=== PATIENT | female | born 1930 | race Caucasian/White ===

== ENCOUNTER 2019-07-01 08:07 | Inpatient (IN) ==
[2019-07-01] MEDS ORDERED: ASPIRIN PO ONE (08:31)
--- NOTE | 2019-07-01 09:02 | Diag Imaging Result Doc PS360 ---
EXAM: CHEST-1 VIEW 07/01/2019 HISTORY: sob TECHNIQUE: AP portable upright at 2051 COMMENT: There is cardiomegaly. The lungs are not as well-expanded as on 07/07/2018. There is some fluid in the minor fissure on the right. There is some questionable interstitial pulmonary edema. IMPRESSION: Right pleural effusion. Questionable pulmonary edema. Cardiomegaly. Electronically signed by Noe Pedroza 07/01/2019 8:59 AM
--- NOTE | 2019-07-01 09:07 | PROVIDER DOCUMENTATION ---
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 She states that it made her feel bad so she stopped taking it 3 days ago. She has had a cough with pink sputum Quality of Pain: reports: none Severity in ED: reports: moderate Onset/Duration: reports: 24 hours ago Timing: reports: still present Context: denies: recent foreign travel, insect bite (possible tick), recent chemotherapy, multiple patients with similar complaints, recent URI, out of meds, sports/exercise, aspiration/choking, other Exposure: reports: unknown cause Cough Quality/Degree: reports: moderate, sputum Episode Frequency: chronic episodes Current Respiratory Medication Therapy: Initiated none Modifying Factors: improves with: nothing Associated Symptoms: reports: short of breath Similar Symptoms Previously?: Yes Recently seen or treated by another doctor?: Yes Review of Systems - Adult - REVIEW OF SYSTEMS - ADULT Constitutional: reports: no symptoms reported Eyes: reports: no symptoms reported Ears, Nose, Mouth & Throat: reports: no symptoms reported Cardiovascular: reports: heart murmur, palpitations Respiratory: reports: see HPI, chronic cough Gastrointestinal: reports: no symptoms reported Genitourinary: reports: no symptoms reported Musculoskeletal: reports: no symptoms reported Integumentary: reports: no symptoms reported Neurological: reports: no symptoms reported Psychiatric: reports: no symptoms reported Endocrine: reports: no symptoms reported Hematologic/Lymphatic: reports: no symptoms reported Allergic/Immunologic: reports: no symptoms reported Past History - Adult - PAST MEDICAL HISTORY-ADULT Review of Records: reports: Old Records Reviewed, Nursing Assessment Review Major Childhood Illnesses: reports: denies history Cardiovascular: reports: CHF, murmur Respiratory: reports: denies history Gastrointestinal: reports: denies history Obstetrical/Gynecological: reports: denies history Genitourinary: reports: denies history Musculoskeletal: reports: denies history Neurological: reports: denies history Endocrine/Immune: reports: denies history Other Conditions: reports: denies history - PRIOR SURGERIES/PROCEDURES Surgical/Procedure History: reports: hysterectomy - IMMUNIZATION STATUS Childhood Immunizations: See Nurse Assessment Flu Vaccine: See Nurse Assessment - FAMILY HISTORY Family History: reviewed, not pertinent Physical Exam-General - PHYSICAL EXAM-ADULT Initial Vital Signs Reviewed: Yes - CONSTITUTIONAL General Appearance: alert, mild distress, thin - EYES Eyes: PERRL/EOMI, pink conjunctivae - HEAD, EARS, NOSE, MOUTH & THROAT HENMT: normocephalic/atraumatic, moist mucous membranes, normal ENT inspection, TMs normal, pharynx normal - NECK Neck: non-tender, full range of motion, supple - RESPIRATORY Respiratory: rales (at base) - CARDIOVASCULAR Cardiovascular: regular rate, rhythm, tachycardia, systolic murmur (08/16) - GASTROINTESTINAL (ABDOMEN) Abdominal Exam: normal bowel sounds, non tender, soft, no organomegaly, no pulsatile mass - LYMPHATIC Lymphatic: no adenopathy, axilla node tender - MUSCULOSKELETAL Back Exam: normal inspection, no CVA tenderness, no vertebral tenderness Extremity: normal range of motion, non-tender, normal gait, pedal edema (trace) - SKIN Integumentary: normal color, normal turgor - NEUROLOGIC 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 as tested - PSYCHIATRIC Psych/Mental Status: normal mood/affect Progress - PLAN OF CARE/RESULTS Progress/Plan/Lab Results: Vital Signs - 8 hr 07/01/19 08:15 Temperature 98.9 F Pulse Rate 116 H Respiratory Rate 28 H Blood Pressure 93/60 O2 Sat by Pulse Oximetry 91 L Laboratory Results - last 24 hr 07/01/19 07/01/19 07/01/19 08:53 08:56 08:56 WBC 10.07 RBC 4.09 L Hgb 13.3 Hct 40.6 MCV 99.3 H MCH 32.5 H MCHC 32.8 L RDW Std Deviation 12.5 Plt Count 93 L MPV 12.7 H Immature Gran % (Auto) 0.3 Neut % (Auto) 75.7 H Lymph % (Auto) 10.4 L [place] % (Auto) 13.0 H Eos % (Auto) 0.2 Baso % (Auto) 0.4 Immature Gran # (Auto) 0.03 Neut # (Auto) 7.62 H Lymph # (Auto) 1.05 L [place] # (Auto) 1.31 H Eos # (Auto) 0.02 Baso # (Auto) 0.04 PT INR PTT (Actin FS) Sodium 139 Potassium 3.8 Chloride 99 Carbon Dioxide 31 Anion Gap 9 BUN 17 Creatinine 0.7 Estimated GFR/1.73 m2 > 60 BUN/Creatinine Ratio 24 Glucose 148 H Calculated Osmolality 282 Calcium 10.0 Total Bilirubin 0.96 AST 71 H ALT 63 H Alkaline Phosphatase 92 Creatine Kinase 164 Troponin T High Sens Wqy-E-Sgqfjubfiew Pept Total Protein 6.2 L Albumin 3.5 Globulin 2.7 Albumin/Globulin Ratio 1.3 Plasma Lactate Urine Source CLEAN CATCH Urine Color YELLOW Urine Turbidity CLEAR Urine pH 6.0 Ur Specific [place] 1.021 Urine Protein 30 A Ur Glucose (Stick) 150 A Ur Ketones (Stick) NEGATIVE Urine Blood LARGE A Urine Nitrite NEGATIVE Urine Bilirubin NEGATIVE Urobilinogen Dipstick NORMAL Urine Leukocytes NEGATIVE Urine WBC (Auto) <10 Urine RBC (Auto) 20-40 A U Epithel Cells (Auto) <10 Urine Bacteria (Auto) NEGATIVE 07/01/19 07/01/19 07/01/19 08:56 08:56 08:56 WBC RBC Hgb Hct MCV MCH MCHC RDW Std Deviation Plt Count MPV Immature Gran % (Auto) Neut % (Auto) Lymph % (Auto) [place] % (Auto) Eos % (Auto) Baso % (Auto) Immature Gran # (Auto) Neut # (Auto) Lymph # (Auto) [place] # (Auto) Eos # (Auto) Baso # (Auto) PT 14.4 INR 1.10 PTT (Actin FS) 39.0 Sodium Potassium Chloride Carbon Dioxide Anion Gap BUN Creatinine Estimated GFR/1.73 m2 BUN/Creatinine Ratio Glucose Calculated Osmolality Calcium Total Bilirubin AST ALT Alkaline Phosphatase Creatine Kinase Troponin T High Sens 63 H Tic-Z-Eslmpjlujmm Pept Total Protein Albumin Globulin Albumin/Globulin Ratio Plasma Lactate 2.7 H Urine Source Urine Color Urine Turbidity Urine pH Ur Specific [place] Urine Protein Ur Glucose (Stick) Ur Ketones (Stick) Urine Blood Urine Nitrite Urine Bilirubin Urobilinogen Dipstick Urine Leukocytes Urine WBC (Auto) Urine RBC (Auto) U Epithel Cells (Auto) Urine Bacteria (Auto) 07/01/19 08:56 WBC RBC Hgb Hct MCV MCH MCHC RDW Std Deviation Plt Count MPV Immature Gran % (Auto) Neut % (Auto) Lymph % (Auto) [place] % (Auto) Eos % (Auto) Baso % (Auto) Immature Gran # (Auto) Neut # (Auto) Lymph # (Auto) [place] # (Auto) Eos # (Auto) Baso # (Auto) PT INR PTT (Actin FS) Sodium Potassium Chloride Carbon Dioxide Anion Gap BUN Creatinine Estimated GFR/1.73 m2 BUN/Creatinine Ratio Glucose Calculated Osmolality Calcium Total Bilirubin AST ALT Alkaline Phosphatase Creatine Kinase Troponin T High Sens Jya-H-Mblsuxvbvwg Pept 02529 H Total Protein Albumin Globulin Albumin/Globulin Ratio Plasma Lactate Urine Source Urine Color Urine Turbidity Urine pH Ur Specific [place] Urine Protein Ur Glucose (Stick) Ur Ketones (Stick) Urine Blood Urine Nitrite Urine Bilirubin Urobilinogen Dipstick Urine Leukocytes Urine WBC (Auto) Urine RBC (Auto) U Epithel Cells (Auto) Urine Bacteria (Auto) Orders Category Date Time Status Cardiac Monitoring DIRECTED Care 07/01/19 08:30 Active IV Insertion ORDERED Care 07/01/19 08:30 Completed Notify MD of + Sepsis Screen NOW Care 07/01/19 08:30 Active Notify Physician As Ordered Care 07/01/19 08:30 Active CHEST-1 VIEW [RAD] Stat Exams 07/01/19 08:30 Completed BLOOD CULTURE [BLDCUL] Stat Lab 07/01/19 08:56 Results CBC WITH DIFF [HEME] Stat Lab 07/01/19 08:56 Completed CK PROFILE [SP CHEM] Stat Lab 07/01/19 08:56 Completed COMPREHENSIVE METABOLIC PANEL [CHEM] Stat Lab 07/01/19 08:56 Completed LACTATE, PLASMA [CHEM] Lab 07/01/19 08:56 Completed LACTATE, PLASMA [CHEM] Lab 07/01/19 11:30 Uncollected LACTATE, PLASMA [CHEM] Lab 07/01/19 14:30 Uncollected PRO B-NATRIURETIC PEPTIDE Stat Lab 07/01/19 08:56 Completed PROTIME WITH INR [COAG] Stat Lab 07/01/19 08:56 Completed PTT [COAG] Stat Lab 07/01/19 08:56 Completed TROPONIN T HIGH SENSITIVITY Stat Lab 07/01/19 08:56 Completed URINALYSIS W/POSS RFLX CULT [URINALYSIS] Stat Lab 07/01/19 08:53 Completed 0.9% Sodium Chloride Inj [Ns] 1,000 ml Med 07/01/19 09:26 Discontinued IV 999 mls/hr Aspirin Med 07/01/19 08:31 Discontinued 325 mg PO NOW ONE Oxygen Device Stat Oth 07/01/19 08:30 Active EKG [EKG] Stat Ther 07/01/19 08:32 Ordered Result Diagrams: 07/01/19 08:56 07/01/19 08:56 - REASSESSMENT Reassessment #1 Time Reassessed: 10:42 Status: unchanged - CONSULTS/PCP/HOSPITALIST Notification #1 *Consult/PCP/Hospitalist*: Maribel Time Discussed: 10:42 (Admit to Dr Wallace) Consult Disposition: Will see in ED Departure - Departure Date of Disposition Decision: 07/01/19 Time of Disposition Decision: 10:43 DIAGNOSIS: CHF (congestive heart failure) Disposition: ADMITTED INPATIENT 09 Certified Medical Emergency: Emergent Condition: Fair Referrals and Follow-Ups: Ladonna Woodson MD [Primary Care Provider] - - Critical Care Note This patient required my direct & personal management of CC.: No Attestation - Physician/ GABRIELLE Attestation Patient care was provided by Advanced Practice Provider:: No The physician spent face to face time with patient:: Yes Advanced Practice Provider documentation review:: Supervising physician onsite and consulted in the evaluation and care of this patient. The physician did have a face to face encounter with the patient.
[2019-07-01 09:17] LABS: URINE SOURCE CLEAN CATCH
[2019-07-01] MEDS ORDERED: NS 1,000 ML IV ONE (09:26)
[2019-07-01 09:32] LABS: BILIRUBIN URINE NEGATIVE (NEGATIVE); BLOOD URINE LARGE (NEGATIVE); COLOR YELLOW; GLUCOSE URINE 150 mg/dL (NEGATIVE); KETONE URINE NEGATIVE (NEGATIVE); LEUKOCYTES URINE NEGATIVE (NEGATIVE); NITRITE URINE NEGATIVE (NEGATIVE); PROTEIN URINE 30 mg/dL (NEGATIVE); SP GRAVITY URINE 1.021; TURBIDITY URINE CLEAR (CLEAR); UROBILINOGEN URINE NORMAL (NORMAL)
[2019-07-01 09:34] LABS: UR EPITHELIAL CELLS <10 /HPF (<10); URINE BACTERIA NEGATIVE /HPF; URINE RBC 20-40 /HPF (<10); URINE WBC <10 /HPF (<10)
[2019-07-01 09:39] LABS: INR 1.1; PROTIME 14.4 Seconds (11.0-16.0)
[2019-07-01 09:48] LABS: BASO# 0.04 X1000 (0.0-0.2); BASO% 0.4 % (0.0-0.8); EOS# 0.02 X1000 (0.0-0.7); EOS% 0.2 % (0.0-10.0); HEMATOCRIT 40.6 % (37.0-47.0); HEMOGLOBIN 13.3 g/dL (12.0-16.0); IMM GRAN# 0.03 X1000 (0.0-0.04); IMM GRAN% 0.3 % (0.0-0.5); LYMPH# 1.05 X1000 (1.2-3.4); LYMPH% 10.4 % (20.5-51.1); MCH 32.5 PG (27-31); MCHC 32.8 g/dL (33-37); MCV 99.3 FL (81-99); MONO# 1.31 X1000 (0.11-0.59); MPV 12.7 FL (7.4-10.4); NEUT# 7.62 X1000 (1.4-6.5); NEUT% 75.7 % (42.2-75.2); PLT 93 X1000 (130-400); RBC 4.09 XMIL (4.2-5.4); RDW 12.5 % (11.5-14.5); WBC 10.07 X1000 (4.8-10.8)
[2019-07-01 09:49] LABS: AGAP 9; ALB/GLOB RATIO 1.3; ALBUMIN 3.5 g/dL (3.5-5.0); ALKALINE PHOSPHATASE 92 U/L (32-104); BUN 17 mg/dL (8-22); CHLORIDE 99 mmol/L (98-107); CK PROFILE 164 U/L (24-173); COSMO 282; CREATININE 0.7 mg/dL (0.5-0.9); ESTIMATED GFR > 60; GLUCOSE 148 mg/dL (70-104); GOT 71 U/L (10-30); GPT 63 U/L (10-36); POTASSIUM 3.8 mmol/L (3.5-5.1); SODIUM 139 mmol/L (136-145); TCO2 31 mmol/L (25-35); TOTAL BILIRUBIN 0.96 mg/dL (0.20-1.00); TOTAL PROTEIN 6.2 g/dL (6.3-8.3)
--- NOTE | 2019-07-01 11:36 | HISTORY AND PHYSICAL ---
HISTORY OF PRESENT ILLNESS: She says that for a couple weeks now, she has had more shortness of breath, and it has just progressed. She feels like she has had a little more swelling in her feet, increased orthopnea, and she has been told that she has had congestive heart failure. PAST MEDICAL HISTORY: Fairly unremarkable. She had a light stroke back in June of this last year, and then the following July, she got pneumonia, she was pretty weak. I think it took her until August to really recover and get her strength back. She has been told that she had congestive heart failure about 3 years ago. PAST SURGICAL HISTORY: Only surgical history is status post hysterectomy. ALLERGIES: No known drug allergies. FAMILY HISTORY: Mother and father both of a heart attack. SOCIAL HISTORY: Negative for alcohol, tobacco, or illicit drugs. She lives by herself, but her son lives across the street and checks on her often. She lives up in [place]. REVIEW OF SYSTEMS: General: She does not report any weight gain or loss. No fever or chills. HEENT: No change in visual or hearing acuity. Respiratory: She has increased dyspnea with exertion and with rest, increased orthopnea. Cardiovascular: No chest pain or tachy palpitations reported. Musculoskeletal/Neurologic: No focal complaints. Endocrinologic/Hematologic: No significant history. PHYSICAL EXAMINATION: VITAL SIGNS: She is afebrile. Temperature is 98.9 degrees, pulse 116, respirations 20, blood pressure 93/60. GENERAL: She is awake, alert, oriented x3. HEENT: Pupils are equal and round. NECK: Supple. No thyromegaly. She has distended neck veins appreciated. No cervical adenopathy. LUNGS: She has rales in both bases. CARDIOVASCULAR: Regular rhythm and rate without murmur or S3. ABDOMEN: Soft. SKIN: Warm and dry. BACK: She does have some kyphosis. EXTREMITIES: Her carotid, radial, and femoral pulse is 2+ and symmetrical. She has trace edema at the ankles to the mid navas. SKIN: Warm and dry. No sign of rashes. IMAGING AND LABORATORY DATA: White count 10,070, hematocrit is 40, platelet count is 93,000. Sodium is 139, potassium 3.8, chloride 99, BUN 17, creatinine 0.7, blood sugar is 148, calcium is 10. AST is 71, ALT is 63, alkaline phosphatase is 92. ProBNP was 16,666. Albumin is 3.5. ProTime is 14.4, INR is 1.1. Urine was unremarkable. Chest x-ray: Right pleural effusion, questionable pulmonary edema. ASSESSMENT AND PLAN: 1. Pulmonary venous hypertension with pleural effusion, increased dyspnea, increased orthopnea. She has distended neck veins, and appears to have volume overload on exam. We are going to give her Lasix 40 mg intravenously every 12 hours. We will watch her blood pressure and afterload. She has recently been changed from verapamil to Lopressor. She is on 25 mg twice a day, and we will cut that down to 12.5 twice a day. We will watch her electrolytes, including magnesium. We need to check her T4, TSH, B12, and folate. We will also check troponin again, and CK in the morning. Her rn integrated is Dr. Kemp, and I will get him involved as well in the morning. I do not see any sign of pneumonia. 2. She has been coughing up thick sputum. Will put her on some guaifenesin. I am going to start her on ceftriaxone. I think she has postnasal drainage and bronchial irritation secondary to that. Looking back, she had a myocardial perfusion scan on 06/10/2016. At that time, her ejection fraction was 73%, which would suggest that she has congestive heart failure with normal ejection fraction. She had an echocardiogram done on 08/02/2016, and ejection fraction there again was estimated at 70%. I think we will repeat another echocardiogram and see about her left ventricular function and valvular function. cc: Jaspreet Wallace MD
[2019-07-01 11:42] LABS: FREE T4 1.37 ng/dL (0.93-1.70); TSH 1.38 uIUmL (0.27-4.20)
[2019-07-01] MEDS ORDERED: NS NEB INH SCH (12:44)
[2019-07-01] MEDS ORDERED: LOVENOX SUBQ SCH (12:44)
[2019-07-01] MEDS ORDERED: ZOFRAN IV PRN (12:44)
[2019-07-01] MEDS ORDERED: TYLENOL PO PRN (12:44)
[2019-07-01] MEDS: ROCEPHIN 1 GM in NS 50 ML IV SCH (13:37)
[2019-07-01] MEDS: LASIX IV SCH (13:37)
[2019-07-01] MEDS: MUCINEX PO SCH ×2 (13:56→21:30)
[2019-07-01] MEDS: SYMBICORT 80/4.5 MICROGM INHALER INH SCH ×2 (13:58→22:50)
[2019-07-01] MEDS: XOPENEX NEB INH SCH ×3 (13:59→22:50)
--- NOTE | 2019-07-01 17:09 | EKG Report ---
Test Performed on : 07/01/2019 08:20:05 AM Test Reason : sob Blood Pressure : / mmHG Vent. Rate : 117 BPM Atrial Rate : 117 BPM P-R Int : 168 ms QRS Dur : 088 ms QT Int : 328 ms P-R-T Axes : 058 038 063 degrees QTc Int : 457 ms Sinus tachycardia. Possible Left atrial enlargement Left ventricular hypertrophy with repolarization abnormality Abnormal ECG When compared with ECG of 20-JUN-2018 09:04, IA interval has decreased T wave inversion now evident in Anterior leads Unconfirmed Result
[2019-07-01] MEDS: LOPRESSOR PO SCH (21:13)
[2019-07-02] MEDS: LASIX IV SCH ×2 (04:11→18:36)
[2019-07-02] MEDS: SYMBICORT 80/4.5 MICROGM INHALER INH SCH ×2 (07:28→22:52)
[2019-07-02] MEDS: XOPENEX NEB INH SCH ×3 (07:28→22:52)
[2019-07-02 07:40] LABS: BASO# 0.02 X1000 (0.0-0.2); BASO% 0.2 % (0.0-0.8); EOS# 0.08 X1000 (0.0-0.7); EOS% 0.8 % (0.0-10.0); HEMATOCRIT 41.2 % (37.0-47.0); HEMOGLOBIN 13.3 g/dL (12.0-16.0); IMM GRAN# 0.03 X1000 (0.0-0.04); IMM GRAN% 0.3 % (0.0-0.5); LYMPH# 0.94 X1000 (1.2-3.4); LYMPH% 9.3 % (20.5-51.1); MCH 32.5 PG (27-31); MCHC 32.3 g/dL (33-37); MCV 100.7 FL (81-99); MONO% 10.9 % (1.7-9.3); MPV 13.5 FL (7.4-10.4); NEUT% 78.5 % (42.2-75.2); PLT 95 X1000 (130-400); RBC 4.09 XMIL (4.2-5.4); RDW 12.5 % (11.5-14.5); WBC 10.07 X1000 (4.8-10.8)
[2019-07-02 07:57] LABS: AGAP 10; BUN 12 mg/dL (8-22); CALCIUM 10.5 mg/dL (8.8-10.2); CHLORIDE 99 mmol/L (98-107); COSMO 288; CREATININE 0.6 mg/dL (0.5-0.9); ESTIMATED GFR > 60; GLUCOSE 120 mg/dL (70-104); POTASSIUM 3.4 mmol/L (3.5-5.1); SODIUM 144 mmol/L (136-145); TCO2 35 mmol/L (25-35)
--- NOTE | 2019-07-02 08:17 | CARDIOLOGY CONSULTATION ---
DATE: 07/02/2019 CONSULTATION REQUESTED BY: [facility], patient of Dr. Kemp. REASON FOR CONSULTATION: Atrial fibrillation, paroxysmal weakness. CHIEF COMPLAINT: Palpitations. HISTORY: Ms. Willams is an 88-year-old female, who presented to the emergency room on July 01 at about 8:30 in the morning complaining of palpitations that had been going on for a few hours. She had not been feeling well since her last visit with Dr. Kemp. At that time, her medications were changed around. She had been taking verapamil. However, her blood pressure was way too low and they switched her over to metoprolol 25 b.i.d., and she did not feel well with that. Her blood pressure was low. She was nauseous. The initial EKG on presentation showed sinus tachycardia. However, there was an issue of whether or not she may have been having atrial fibrillation at some point. At any rate, this morning she is feeling somewhat better. Her heart rate is not going as fast. She denies having any chest pain. She did have dyspnea. She sleeps sitting upright in a reclining chair. PAST HISTORY: Positive for hypertrophic cardiomyopathy. This has been a diagnosis established a long time ago. She also has a question of paroxysmal atrial fibrillation. The fibrillation has never been documented. There is no hard evidence of that. The patient has been losing weight lately. Of note, her thyroid hormone levels checked yesterday were normal. No other issues at this time. 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 She had a cataract extraction twice. She has had hysterectomy. FAMILY HISTORY: Father, mother and sister had coronary heart disease. SOCIAL HISTORY: She is a . She has 1 son who drives her around. She has been to [facility] recently for a follow up on her brain condition. Apparently, at some point she has suffered a stroke. 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 Most of this appears to be calcified. MRI of the brain showed multiple areas of recent infarcts; at the right precentral gyrus, left frontal lobe and left posterior parietal. That may be a hint that she indeed could have had paroxysmal atrial fibrillation. REVIEW OF SYSTEMS: Otherwise is noncontributory. PHYSICAL EXAMINATION: Vital signs: Blood pressure is 100/76, temperature 98.2 degrees, pulse 103, respirations 18. General: She is awake, alert, oriented, in no distress. HEENT: Unremarkable. Chest: Clear to auscultation and percussion. Heart: Sounds are regular rhythmic with a loud systolic murmur over the aortic area, 3/6 in intensity, radiates to the back. Abdomen: Nontender. Extremities: Showed decreased pulses. No peripheral edema. Neurologic exam: Nonfocal. Moves 4 extremities. BLOOD WORK: Sodium 139, potassium 3.8, BUN 17, creatinine 0.6. Pro BNP 16,666 pg/ml. Troponin HS 63 ng/L. They have not repeated it. IMPRESSION: 1. Patient who presents with palpitations. Electrocardiogram shows sinus tachycardia. Chest x- ray shows right pleural effusion, questionable pulmonary edema. 2. Congestive heart failure. This is probably diastolic based on the history of hypertrophic cardiomyopathy. 3. 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 4. History of stroke, possibly embolic, from a question of paroxysmal atrial fibrillation. RECOMMENDATION: At this time, we will do a followup echocardiogram. We may have to put an implantable loop recorder on her to determine whether or not she has had persistent atrial fibrillation. If that is the case, she may benefit from occlusion of the atrial appendage or long- term anticoagulation with either Eliquis or Xarelto. The issue here is that she has lesions in the brain that could potentially bleed in the presence of an anticoagulant. We will discuss this with her primary charge authorizer and primary physician. Further advice will be forthcoming. cc: Robbie Hunter MD [facility]
[2019-07-02] MEDS: MUCINEX PO SCH ×2 (10:27→21:54)
[2019-07-02] MEDS: LOPRESSOR PO SCH ×3 (10:27→21:53)
[2019-07-02] MEDS: ALDACTONE PO SCH (10:27)
--- NOTE | 2019-07-02 13:09 | PROGRESS NOTE ---
DATE: 07/02/2019 SUBJECTIVE: Ms. Willams was admitted yesterday. She said a couple weeks she has been more short of breath and more progressive swelling in her feet and more orthopnea. Really not much past medical history. We admitted her for pulmonary hypertension. We are going to do an echocardiogram. She says she is breathing better today. OBJECTIVE: Vital Signs: Temperature 98.8 degrees, pulse 112, respirations 18, blood pressure 119/53. HEENT: Pupils are equal and round. Lungs: Clear in all lung cardona. Cardiovascular: Regular rhythm and rate without murmur or S3. Abdomen: Soft. Skin: Warm and dry. REVIEW OF LABS: This morning white count 10,070, hematocrit is 41, platelet count 95,000. Sodium 144, potassium 3.4, chloride 99, BUN is 12, creatinine 0.6. Her proBNP when she came in was 16,000. ASSESSMENT AND PLAN: We will check an echocardiogram. Seems to be responding to diuresis well. Cardiology, her doctor is Dr. Hunter I believe or maybe Dr. Kemp, but at any rate, we are going to continue to diurese. Blood pressure looks good. We will look at her left ventricular function. cc: Jaspreet Wallace MD
--- NOTE | 2019-07-02 13:13 | PROGRESS NOTE ---
DATE: 07/02/2019 SUBJECTIVE: Ms. Willams said she had a pretty good night. She is feeling better. She is scheduled for an echocardiogram this morning. OBJECTIVE: Vital Signs: Temperature 98.8 degrees, pulse 112, respirations 18, blood pressure 119/53. Eyes: Pupils are equal and round. Lungs: Clear in all lung cardona. Cardiovascular exam: Regular rhythm and rate without murmur or S3. Abdomen: Abdomen is soft. Skin: Skin is warm and dry. LABORATORY DATA: Lab from yesterday reviewed. ASSESSMENT/PLAN: Disregard this note... INCOMPLETE REPORT -- DICTATION ENDS HERE. cc: Jaspreet Wallace MD
[2019-07-02] MEDS: ROCEPHIN 1 GM in NS 50 ML IV SCH (14:09)
[2019-07-03] MEDS: LASIX IV SCH ×2 (05:09→11:06)
--- NOTE | 2019-07-03 07:49 | EKG Report ---
Test Performed on : 07/03/2019 06:48:02 AM Test Reason : palpitations/SVT Blood Pressure : / mmHG Vent. Rate : 091 BPM Atrial Rate : 091 BPM P-R Int : 164 ms QRS Dur : 092 ms QT Int : 388 ms P-R-T Axes : 072 046 060 degrees QTc Int : 477 ms Normal sinus rhythm. Possible Left atrial enlargement Left ventricular hypertrophy Abnormal ECG Confirmed by Elieser MARIE, Donal Post ([id number]) on 07/05/2019 2:32:28 PM
[2019-07-03] MEDS ORDERED: POTASSIUM CHLORIDE 20% LIQUID PO ONE (08:03)
[2019-07-03] MEDS: MUCINEX PO SCH ×2 (11:05→20:57)
[2019-07-03] MEDS: ALDACTONE PO SCH (11:05)
[2019-07-03] MEDS: ISOPTIN PO SCH ×2 (11:05→20:57)
[2019-07-03] MEDS: LOPRESSOR PO SCH ×2 (11:05→20:57)
[2019-07-03] MEDS: XOPENEX NEB INH SCH ×3 (11:16→23:46)
[2019-07-03] MEDS: SYMBICORT 80/4.5 MICROGM INHALER INH SCH ×2 (11:17→19:40)
[2019-07-03] MEDS: ROCEPHIN 1 GM in NS 50 ML IV SCH (12:39)
--- NOTE | 2019-07-03 13:53 | Diag Imaging Result Doc PS360 ---
CT ANGIOGRM PULMONARY ARTERIES - 07/03/2019 INDICATION: SOB/HI D-D TECHNIQUE: Axial CT images were obtained after administering intravenous contrast. Coronal MIP images were generated. COMPARISON: None FINDINGS: There is no pulmonary embolism. There is no adenopathy. There is significant cardiomegaly. There is some hazy interstitial opacity diffusely and bilaterally indicating pulmonary edema. There are some patchy atelectasis in the lung bases. There is a large benign right renal cyst. This measures 5.2 cm. Otherwise upper abdominal images are unremarkable. There is exaggerated kyphosis of the thoracic spine. There are several old compression fractures of the midthoracic spine. IMPRESSION: Negative for pulmonary embolism. Congestive heart failure. This exam was performed using automated exposure control, adjustment of mA or kV according to patient size, and/or use of iterative reconstruction technique Electronically signed by Avi Sykes 07/03/2019 1:50 PM
--- NOTE | 2019-07-03 16:00 | CARDIOLOGY PROGRESS NOTE ---
DATE: 07/04/2019 CHIEF COMPLAINT: Palpitation, malaise. SUBJECTIVE: Mrs. Willams said that she had a better day yesterday. She has not felt weak or sick. Her telemetry indicates that she is in sinus rhythm with some episodes of sinus tachycardia, no atrial fibrillation has been noted. OBJECTIVE: Vital signs: Blood pressure is 98/55, temperature 98 degrees, pulse 84, respirations 17. General: She is awake, alert, oriented, no distress. HEENT: Unremarkable. Chest: Kyphosis with slightly decreased breath sounds diffusely. Heart: Sounds are regular and rhythmic with a loud systolic murmur 3/6 intensity over aorta area and radiated to multiple places. Abdomen: Nontender. Extremities: Show no edema. Neurologic exam: Follows commands, moves all 4 extremities. BLOOD WORK: Sodium 144, potassium 3.4, BUN 12, creatinine 0.6. IMPRESSION: 1. Patient who presented with complaints of heart racing, palpitations. 2. Obstructive hypertrophic cardiomyopathy. 3. History of stroke possibly embolic. 4. Congestive heart failure diastolic. 5. Mild hypokalemia. RECOMMENDATIONS: At this time, we will try to correct her potassium. We have put her on spironolactone. I am going to give her 1 dose of 40 mEq of potassium. I would put her back on low-dose verapamil 40 mg twice a day. We will see how she does today and if she is doing better tomorrow she may get to go home. The issue here is to balance her heart rate with the filling pressures. Mechanically, she will probably do better with a lower heart rate. Her peripheral blood pressure might not be the best guideline to allow us to adjust her medications. We will see how she does today and will make a final decision tomorrow as far as discharge. cc: Robbie Hunter MD
--- NOTE | 2019-07-03 18:28 | PROGRESS NOTE ---
DATE: 07/03/2019 SUBJECTIVE: Today, Ms. Willams refers to be doing well. She has not had any more of the palpitations, and she is not having any difficulty breathing. OBJECTIVE: Vital Signs: Blood pressure is 99/40, pulse of 93, respirations 16, and temperature 97.9 degrees. General: Ms. Willams is an 88-year-old elderly female. She is in bed in no distress. Mucosa is pink and moist. Anicteric and acyanotic. Neck: Supple. Chest: Good air entry bilaterally. Did not hear any crackles. Cardiovascular: Regular rate and rhythm. There is an murmur radiating to the neck about 2/6. There is also a TR murmur. Abdomen: Soft. Extremities: No pedal edema. TICKET COUNTER: Patient is awake, alert, and oriented. LABORATORY DATA: Data has been reviewed. No major abnormalities picked up. IMAGING STUDIES: A chest x-ray did show right pleural effusion, questionable edema, and cardiomegaly. CTA this morning showed negative for PE and congestive heart failure. A previous echocardiogram which was done in 2017 showed an ejection fraction of 70. However, there was evidence of significant left ventricular outflow tract obstruction with a peak gradient of 116 and a mean of 61. ASSESSMENT: 1. Congestive heart failure exacerbation with preserved ejection fraction. 2. Severe hypertrophic cardiomyopathy. 3. Pulmonary artery systolic hypertension. 4. Sinus tachycardia on presentation. However, there is a question the patient has been in atrial fibrillation in the past. Cardiology is on board. 5. Mild hyponatremia. We will continue to replace this. 6. Macrocytosis with normal folate and B12 associated with low platelet concerning for possible Bone Marrow disease, a low grade MDS is a possibility. The patient will need to follow up with Hematology Oncology. She is currently asymptomatic. cc: Georgi Reza MD [facility]
[2019-07-04 05:47] LABS: AGAP 8; BUN 18 mg/dL (8-22); CALCIUM 10.3 mg/dL (8.8-10.2); CHLORIDE 97 mmol/L (98-107); COSMO 277; CREATININE 0.7 mg/dL (0.5-0.9); ESTIMATED GFR > 60; GLUCOSE 121 mg/dL (70-104); MAGNESIUM 1.9 mg/dL (1.5-2.7); POTASSIUM 3.8 mmol/L (3.5-5.1); SODIUM 137 mmol/L (136-145); TCO2 32 mmol/L (25-35)
[2019-07-04] MEDS: XOPENEX NEB INH SCH ×3 (07:38→23:32)
[2019-07-04] MEDS: SYMBICORT 80/4.5 MICROGM INHALER INH SCH ×2 (07:39→21:00)
--- NOTE | 2019-07-04 08:15 | EKG Report ---
Test Performed on : 07/04/2019 07:19:35 AM Test Reason : tachycardia Blood Pressure : / mmHG Vent. Rate : 086 BPM Atrial Rate : 086 BPM P-R Int : 172 ms QRS Dur : 092 ms QT Int : 392 ms P-R-T Axes : 074 051 069 degrees QTc Int : 469 ms Normal sinus rhythm. Voltage criteria for left ventricular hypertrophy Nonspecific ST abnormality Abnormal ECG Confirmed by Elieser MARIE, Donal Post ([id number]) on 07/05/2019 2:33:54 PM
--- NOTE | 2019-07-04 08:54 | CARDIOLOGY PROGRESS NOTE ---
DATE: 07/04/2019 CHIEF COMPLAINT: Shortness of breath, weakness. SUBJECTIVE: Ms. Willams is feeling better. She denies having any chest pain. Palpitations are better. She was having some cough yesterday. OBJECTIVE: Vital signs: Blood pressure is 116/65, temperature 98.5, pulse 88, respirations 20. General: Awake, alert, elderly, in no distress. HEENT: Unremarkable. Chest: Sounds relatively clear to auscultation and percussion. Heart: Sounds are regular and rhythmic with a loud 3/6 systolic murmur over the aortic area radiating everywhere. Abdomen: Nontender. Extremities: Showed no edema. Neurologic exam: Follows commands, moves all 4 extremities. BLOOD WORK: Today, sodium 137, potassium 3.8, BUN 18, creatinine 0.7. Magnesium 1.9. Telemetry shows sinus rhythm without tachycardia or arrhythmia. IMPRESSION: 1. Patient who presented to the hospital with complaints of heart racing and palpitations. 2. Patient who has definite obstructive hypertrophic cardiomyopathy. 3. Congestive heart failure, diastolic. 4. Question of thrombus attached to the right atrial wall. I have reviewed the echocardiogram and I am concerned about that possibility. RECOMMENDATIONS: At this time, I would suggest to watch her and see how she does with a low-dose verapamil plus low-dose beta-jennifer overnight. If she continues to improve and feeling better, I would suggest to do a bedside echocardiogram tomorrow in the morning and if that still shows the suspicious lesion in the right atrium then I would proceed with a transesophageal echocardiogram. If on the other hand we do not see anything there, I would just leave it alone and she may be able to go home. She will follow up with her usual physician, I believe it is Dr. Kemp. cc: Robbie Hunter MD [facility]
[2019-07-04] MEDS: ISOPTIN PO SCH (13:34)
[2019-07-04] MEDS: LOPRESSOR PO SCH (13:34)
[2019-07-04] MEDS: LASIX IV SCH (13:34)
[2019-07-04] MEDS: ALDACTONE PO SCH (13:34)
[2019-07-04] MEDS: MUCINEX PO SCH (13:35)
[2019-07-04] MEDS: ROCEPHIN 1 GM in NS 50 ML IV SCH (13:40)
--- NOTE | 2019-07-04 17:45 | PROGRESS NOTE ---
DATE: 07/04/2019 SUBJECTIVE: This morning Ms. Willams refers to be doing well, denying any new complaints. Cardiology has already evaluated her early on today. OBJECTIVE: Vital signs: Blood pressure is 97/59, pulse of 83, respirations 16, temperature is 97.9 degrees. The patient is saturating 100% on room air. General: Ms. Willams is an 88-year- old female. She is in bed. She is not in any cardiopulmonary distress. She looks slightly underweight. HEENT: Mucosa is pink and moist. Anicteric. Acyanotic. Neck: Supple. Chest: Good air entry bilaterally. There was no crepitations no rhonchi. Cardiovascular: Regular rate and rhythm. There is a 3/6 systolic murmur in the 3rd intercostal space mid clavicular line on the left side. There is also about a 3/6 systolic murmur at the 4th to 5th intercostal space, parasternal. GI: Abdomen soft, nontender. Bowel sounds present. Extremities: No pedal edema. 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 There is no focal deficit. LABORATORY DATA: Sedimentation rate is 22. Chemistry is reviewed, for most part unremarkable. Magnesium is 1.9. MEDICATIONS: Have all been reviewed, no changes. ASSESSMENT: 1. Congestive heart failure with preserved ejection fraction in exacerbation. 2. Severe hypertrophic cardiomyopathy. The patient is on beta jennifer. 3. Severe pulmonary artery systolic pressure. 4. Sinus tachycardia on presentation with presumed atrial fibrillation in the past. 5. Mild macrocytosis with normal folate and B12 associated with low platelet concerning for bone marrow disease. Patient has been advised to follow up with Oncology at a later date. DISPOSITION: So in general I think Ms. Willams is doing remarkably well. She continues to be on Lasix. Metoprolol, and verapamil have been started. Low-dose spironolactone has been started as well. The patient seems to be stable on her current regimen. So far, her blood cultures have all been negative. Chest x-ray did not show any pneumonia nor there did CT scan of the lung, so going to going to discontinue the current antimicrobial coverage. Ms. Willams will have a bedside echocardiogram tomorrow and depending on the results, further recommendations will be done by Cardiology. cc: Georgi Reza MD
[2019-07-05] MEDS: ISOPTIN PO SCH ×2 (00:47→12:35)
[2019-07-05] MEDS: LOPRESSOR PO SCH ×2 (00:47→12:35)
[2019-07-05] MEDS: MUCINEX PO SCH ×2 (00:47→12:36)
[2019-07-05] MEDS: SYMBICORT 80/4.5 MICROGM INHALER INH SCH (07:43)
[2019-07-05] MEDS: XOPENEX NEB INH SCH ×2 (07:43→15:42)
[2019-07-05] MEDS ORDERED: NORPACE PO SCH (11:15)
--- NOTE | 2019-07-05 11:43 | EKG Report ---
Test Performed on : 07/05/2019 11:23:24 AM Test Reason : dyspnea Blood Pressure : / mmHG Vent. Rate : 088 BPM Atrial Rate : 088 BPM P-R Int : 162 ms QRS Dur : 088 ms QT Int : 394 ms P-R-T Axes : 066 051 066 degrees QTc Int : 476 ms Sinus rhythm. with premature supraventricular complexes. Possible Left atrial enlargement Left ventricular hypertrophy with repolarization abnormality Abnormal ECG Confirmed by Elieser MARIE, Donal Post ([id number]) on 07/05/2019 2:36:24 PM
[2019-07-05] MEDS: LASIX IV SCH (12:36)
[2019-07-05] MEDS: ALDACTONE PO SCH (12:36)
--- NOTE | 2019-07-05 16:34 | ECHO REPORT ---
ORDER DATE: 07/02/2019 INTERPRETING PHYSICIAN: Dr. Bird Kemp. ECHOCARDIOGRAPHIC MEASUREMENTS: 1. Interventricular septum: 1.8 cm. 2. Left ventricular posterior wall: 1.1 cm. 3. Left ventricular diastolic diameter: 3.8 cm. 4. Left atrium: 4.7 cm. 5. Aorta: 2.5 cm. 6. Right atrium: 4.4 cm. SUMMARY OF THE 2-DIMENSIONAL IMAGIN. There is moderate to severe left atrial enlargement. 2. Aortic valve leaflets were calcified/sclerosed. 3. There is no aortic stenosis. 4. There is aortic sclerosis. 5. There is mild aortic insufficiency. 6. Tricuspid valve was normal. 7. Peak velocity across the tricuspid valve was 3.4 meters per second. 8. Pulmonary artery systolic pressure of 56 mmHg. 9. Normal left ventricular cavity size. 10. Estimated ejection fraction of 70%. 11. Hyperdynamic left ventricular systolic function with severe asymmetric septal hypertrophy. 12. The interventricular gradient was severe during Valsalva's maneuver. The peak gradient was up to 7.7 meters per second with a peak gradient of 237 mmHg. Without Valsalva the peak gradient was 145 mmHg with a mean gradient of 79 mmHg. 13. 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 14. Mitral valve leaflets had systolic anterior motion of the anterior mitral valve leaflet associated with moderate mitral regurgitation. 15. There is no pericardial effusion or obvious intracardiac mass or thrombus seen. 16. Saline contrast study was negative for patent foramen ovale. cc: MD Naye Grimm CRNP
[2019-07-05 16:47] VITALS: BP 103/68
[2019-07-06] MEDS ORDERED: NON-FORMULARY MED PO SCH (09:00)
[2019-07-06] MEDS ORDERED: LASIX PO SCH (09:00)
--- NOTE | 2019-07-06 19:13 | DISCHARGE SUMMARY ---
ADMISSION DATE: 07/01/2019 DISCHARGE DATE: 07/05/2019 DISPOSITION: Home. FOLLOWUP: 1. Dr. Salazar 2. Dr. Hunter. CONSULTATION DURING THIS ADMISSION: Cardiology was consulted. The patient was seen by Dr. Hunter. INVASIVE PROCEDURES DONE DURING THIS ADMISSION: None. IMAGING STUDIES OF SIGNIFICANCE: 1. A chest x-ray did show pulmonary edema, cardiomegaly and right pleural effusion. 2. An echocardiogram showed an ejection fraction of 70% with severe asymmetric septal hypertrophy. 3. A CTA of the lungs was negative for pulmonary embolism, evidence of congestive heart failure. ADMISSION DIAGNOSES: 1. Pulmonary venous hypertension with pleural effusion. 2. Cough. DIAGNOSES AT THE TIME OF DISCHARGE: 1. Acute on chronic congestive heart failure with preserved ejection fraction. 2. Severe hypertrophic cardiomyopathy. 3. Severe pulmonary hypertension. 4. Sinus tachycardia on presentation. 5. History of possible atrial fibrillation in the past. 6. Microcytosis with normal B12 and folate associated with low platelet count, concerning for possible bone marrow disease. Patient has been advised to follow up with Oncology to rule out possible slow-growing MDS. DISCHARGE MEDICATIONS: 1. Spironolactone 25 mg p.o. daily. 2. Verapamil 40 mg b.i.d. 3. Metoprolol 12.5 mg b.i.d. 4. Symbicort inhaler. 5. Lasix 40 mg p.o. q.48 hours p.r.n. PRESENTING COMPLAINT: Shortness of breath, cough. HISTORY OF PRESENTING COMPLAINT: Ms. 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 Upon presentation, she was evaluated, was found to be remarkably tachycardic, hypoxemic with O2 saturation of 91. A chest x-ray on admission did show cardiomegaly with pulmonary edema. Ms. Willams was subsequently admitted for congestive heart failure exacerbation. HOSPITAL COURSE: Ms. Willams was admitted to the medical floor. She was started on gentle IV diuretic therapy. Cardiology was consulted. The patient was started back on her verapamil. Dr. Hunter saw the patient and also recommended to add low-dose metoprolol. At some point, Dr. Hunter did a bedside echocardiogram to rule out any clots in the atrium, which seems to have been suggested in previous imaging. I was called this afternoon by Dr. Hunter and he notified me that the bedside echocardiogram not show any new abnormalities and that, from a Cardiology standpoint, the patient could be discharged. He also recommends to continue with the low-dose metoprolol and the low-dose verapamil and Aldactone and that Lasix should be used maybe 2 times in a week if needed for swelling. He asked that Ms. Willams maintain adequate hydration. Dr. Hunter wanted to use disopyramide. Unfortunately we do not have this medication at home and he said he would follow up with the patient and make a decision at a later date if that will be needed anyway. Today, Ms. Willams refers to be doing well. Her vitals: Blood pressure is 103/68, pulse of 84, respiration is 18, temperature is 97.4 degrees. She is saturating 96% on room air. We think she is stable to be discharged. She will follow up with Dr. Hunter and with her primary care doctor. All the discharge instructions have been discussed with her. We have also gone over the new medication and the need for p.r.n. Lasix with Ms. Willams and she voiced understanding. TIME SPENT FOR DISCHARGE: 38 minutes. cc: MD Dr. Danuta Gudino Dr.
== END 2019-07-05 18:41 | disposition home or self-care (01) | DRG 292 ==
LOC: ED 08:07 → EDIPHOLD 11:22 → SUATTDRO 11:22 → 1N 16:04
PROVIDERS: ATTEND Internal Medicine